=== PATIENT | male | born 1955 | race American Indian/Alaskan Native ===

== ENCOUNTER 2018-02-09 11:21 | Day surgery (SDC) | payer OTHER ==
[2018-02-09] MEDS ORDERED: Lactated Ringer's 500 ML IV ONE (11:37)
[2018-02-09] MEDS ORDERED: Propofol 10 mg/ml Inj (20 ML) ONE (12:50)
[2018-02-09] MEDS ORDERED: Midazolam 2 MG/2 ML VIAL ONE (12:56)
[2018-02-09 13:35] VITALS: O2SAT 99
[2018-02-09 13:51] VITALS: BP 109/69; PULSE 66; RESP 12; TEMP 98
== END 2018-02-09 13:51 | disposition home or self-care (01) ==
LOC: H.ENDO 11:21
PROVIDERS: ATTEND Internal Medicine Gastroenterology
DX: Z12.11 Encounter for screening for malignant neoplasm of colon (principal); J44.9 Chronic obstructive pulmonary disease, unspecified; E78.5 Hyperlipidemia, unspecified; Z21 Asymptomatic human immunodeficiency virus [HIV] infection status; K64.0 First degree hemorrhoids; K57.30 Diverticulosis of large intestine without perforation or abscess without bleeding
CPT/HCPCS: 45378; J2001; J2250; J2704; J7120

== ENCOUNTER 2018-02-19 11:45 | Day surgery (SDC) | payer OTHER ==
[2018-02-18 10:40] VITALS: BMI 27.0
[2018-02-19] MEDS ORDERED: Bupivacaine HCl 0.25% PF (30 ml) Inj ONE (13:16)
[2018-02-19] MEDS ORDERED: ceFAZolin IV 1 gm in Dextrose 1 GM/50 ML BAG IVPB ONE (13:16)
[2018-02-19] MEDS ORDERED: Rocuronium 10 mg/ml (5 ml) ONE (13:56)
[2018-02-19] MEDS ORDERED: Propofol 10 mg/ml Inj (20 ML) ONE (13:56)
[2018-02-19] MEDS ORDERED: Midazolam 2 MG/2 ML VIAL ONE (13:56)
--- NOTE | 2018-02-19 14:00 | CP.SDSHP ---
Same Day Surgery H & P - History Proposed Procedure: Open unbilical hernia repair w/ mesh Pre-Op Diagnosis: reducible umbilical hernia - Previous Medical/Surgical History Cardiac: Other (HLD) Comments: HIV, Herpes Previous Surgical History: arthroscopy, anal fissure repair - Allergies Allergies: Allergies No Known Allergies Allergy (Verified 02/09/18 11:41) - Current Medications Current Medications: Lipitor 40mg Advair 100/50mcg Chlorthalidone 25mg Valtrex 1gm Sertraline 50mg Odefsey 200/25/25mg - Physical Exam General Appearance: well, NAD Vital Signs: Vital Signs 02/19/18 02/19/18 12:39 12:44 Temperature 98 F Pulse Rate 67 67 Respiratory 18 Rate Blood Pressure 121/83 O2 Sat by Pulse 96 Oximetry Mental Status: Alert & Oriented x3 Neuro: WNL Heart: WNL Lungs: WNL GI: WNL - {Optional Preform as Required} Abdomen: Other (reduced 3cm umbilical hernia) - Impression Impression: 63 y/o M w/ reducible 3cm umbilical hernia Pt. Evaluated Today:Candidate for Anesthesia & Procedure: Yes - Date & Time Date: 02/19/18 Time: 14:00 Short Stay Discharge - Short Stay Discharge Admitting Diagnosis/Reason for Visit: K43.2 Disposition: HOME/ ROUTINE Referrals: Dominick Harrington MD [Primary Care Provider] - Shiela Carlos MD [Staff Provider] - Follow-up: No heavy lifting for 3-4weeks follow up with Dr. Carlos in office/clinic in 7-10 days may take OTC pain medication advance diet as tolerated Patient may shower tomorrow Do not soak or scrub incision No pools, tubs, baths, ocean call Dr. Carlos &/or come to the ED if fever >101, pain, redness, swelling drainage from incision Instructions: Umbilical Hernia, Adult, Surgical Wound (DC)
[2018-02-19] MEDS ORDERED: Lactated Ringer's 1,000 ML IV ONE (14:15)
[2018-02-19] MEDS ORDERED: Lactated Ringer's 500 ML IV ONE ×3 (15:35→16:44)
[2018-02-19] MEDS ORDERED: Oxycodone/Acetaminophen 5/325 mg Tab PO PRN (15:37)
[2018-02-19] MEDS: HYDROmorphone 0.5 mg/0.5 ml ISec IVP PRN ×2 (15:40→15:50)
[2018-02-19] MEDS ORDERED: HYDROmorphone 1 mg/ml ISec ONE ×2 (15:44→15:55)
--- NOTE | 2018-02-19 15:45 | PCM.SURG1 ---
Surgeon's Initial Post Op Note - Surgeon's Notes Surgeon: Dr. [employer] Consultant: Dr. Stein PGY3 Type of Anesthesia: General Endo Pre-Operative Diagnosis: reduced umbilical hernia Operative Findings: stalk of umbilicus identified and divided. reduced umbilical hernia. second incarcerated defect found at 11o'clock. reduced and divided to make one hernia. defect covered w/ single mesh. sutured in place. Post-Operative Diagnosis: incarcerated ventral hernia Operation Performed: open ventral hernia repair w/ mesh Specimen/Specimens Removed: none Estimated Blood Loss: EBL {In ML}: 5 Blood Products Given: N/A Drains Used: No Drains Post-Op Condition: Good Date of Surgery/Procedure: 02/19/18 Time of Surgery/Procedure: 15:49
[2018-02-19] MEDS ORDERED: HYDROmorphone 0.5 mg/0.5 ml ISec IVP PRN (15:52)
[2018-02-19] MEDS ORDERED: Lactated Ringer's 1,000 ML IV SCH (16:00)
[2018-02-19 17:50] VITALS: RESP 18
[2018-02-19 18:34] VITALS: O2SAT 98
[2018-02-19 19:56] VITALS: BP 122/78; PULSE 76; TEMP 97.8
--- NOTE | 2018-02-22 20:40 | OP ---
Copied To: Princess Stein DO Attending MD: Shiela Carols MD PROCEDURE DATE: 02/19/2018 PREOPERATIVE DIAGNOSIS: Symptomatic umbilical hernia. POSTOPERATIVE DIAGNOSIS: Symptomatic umbilical hernia. OPERATION PERFORMED: Umbilical hernia repair with mesh. SURGEON: Shiela Carlos MD DECORATOR INSPECTOR: Princess Stein DO, PGY-3 ANESTHESIA: General. ANESTHESIOLOGIST: Douglas Novoa MD INDICATIONS FOR OPERATION: Patient is a 63-year-old gentleman who was evaluated in outpatient clinic and was found to have a symptomatic umbilical hernia. FINDINGS: The patient had a roughly one and a half centimeter fascial defect through which protruded a hernia sac as well as some adipose tissue. There was no tissue compromised and no signs of incarceration. An additional 0.5 cm to 1 cm defect was also palpated at the 11 o'clock position along the umbilicus which was also reduced. DESCRIPTION OF PROCEDURE: Patient was taken to the operating room after consent was obtained. Patient was placed in supine position on the operating table and underwent general anesthesia. The abdomen was then prepped and draped in the usual fashion. An infraumbilical curvilinear incision was created and extended to the subcutaneous tissues. A Nory was then used to dissect out the umbilical stalk and umbilical hernia. The umbilicus was then identified and divided from the umbilical hernia. A small opening in the hernia sac resulted in protruding omentum which was then placed back into the peritoneal space. Once this umbilical hernia was reduced, inside the abdomen was then swept looking for any residual defects or adhesions. A 0.5 cm to 1 cm size defect was palpated at the 11 o'clock position adjacent to the umbilicus. An incision was made to extend the umbilical defect to include that supraumbilical defect. All contents were reduced back into the abdominal cavity. A large Ventralex patch was then introduced into the umbilical incision and used to close both the umbilical and supraumbilical defect. The patch was sutured in place using 0 Prolene. The patch was then sutured in place and hemostasis confirmed. The umbilicus was then sutured to the subcutaneous tissues using a 4-0 chromic to recreate the umbilical indentation and the skin was then closed using 4-0 Monocryl in a subcuticular running fashion. Upon reaching the end of the incision, the suture broke while attempting to tie the first knot. The incision was then back closed again using 4-0 Monocryl in a running fashion with the two ends being instrument tied to each other. The incision was then dressed with Dermabond and then an eye patch was used to maintain pressure. The patient tolerated the procedure well and was transferred to recovery room in stable condition. Estimated blood loss was 5 mL. All sponge, needles, and instrument counts were correct. Princess Stein DO Shiela Carlos MD MTDKenzie
== END 2018-02-19 20:00 | disposition home or self-care (01) ==
LOC: H.OPSURG 11:45
PROVIDERS: ATTEND Specialist
DX: K43.2 Incisional hernia without obstruction or gangrene (principal); E78.5 Hyperlipidemia, unspecified; Z21 Asymptomatic human immunodeficiency virus [HIV] infection status
CPT/HCPCS: 49561; J0690; J1170; J2001; J2250; J2405; J2704; J3010; J7030; J7120